=== PATIENT | female | born 2005 | race Caucasian/White ===

== ENCOUNTER 2024-06-21 21:14 | Emergency (ER) | payer MEDICAID, OTHER ==
[2024-06-21] MEDS ORDERED: Ketorolac Tromethamine 30 MG (1 mL) VIAL ONE (22:05)
[2024-06-21] MEDS ORDERED: Acetaminophen 500 MG TAB ONE (22:26)
[2024-06-21 22:31] LABS: MONO NEGATIVE CONTROL ZONE White (Negative) (White); MONO POSITIVE CONTROL Pink Line (Positive) (PINK/RED); Mononucleosis NEGATIVE (NEGATIVE)
== END 2024-06-21 23:00 | disposition home or self-care (01) ==
LOC: CSHERS 21:14
DX: J02.9 Acute pharyngitis, unspecified (principal); F17.290 Nicotine dependence, other tobacco product, uncomplicated
CPT/HCPCS: 36415; 86308; 87081; 87430; 99283; J1885